=== PATIENT | female | born 1945 | race Caucasian/White ===

== ENCOUNTER 2019-01-12 10:15 | Inpatient (IN) | payer OTHER ==
[~2019-01-12] VITALS: Ht 154.9 cm; Wt 58.5 kg
[2019-01-12 10:40] VITALS: BP 142/1
[2019-01-12 10:49] LABS: HEMATOCRIT 39.4 % (37.0-47.0); HEMOGLOBIN 13.6 gm/dL (12.0-15.0); MCH 32.1 pg (26.0-34.0); MCHC 34.5 g/dL (28.0-37.0); RBC 4.23 mil/uL (4.20-5.00); RDW 12.8 % (10.5-14.5); WBC 7.5 thou/uL (4.0-11.0)
[2019-01-12 11:05] LABS: ALBUMIN 3.9 g/dL (3.4-5.0); CALCIUM 9.6 mg/dL (8.5-10.1); CREATININE 0.9 mg/dL (0.6-1.0); POTASSIUM 3.4 mmol/L (3.5-5.1); TOTAL BILIRUBIN 0.6 mg/dL (<0.1-1.0); TOTAL PROTEIN 7.2 g/dL (6.4-8.2)
--- NOTE | 2019-01-12 11:37 | NUR ---
PATIENT ADMITTED TO ROOM ACCOMPANIE BY . SHE IS ALERT ORIENTED X4. STATES SHE HAS ABDOMINAL DISCOMFORT BUT NO PAIN AT THIS TIME. RESPIRAITONS ARE NON LABORED. PLEASANT AND COOPERATIVE WITH CARE. WILL CONT WITH PLAN OF CARE.
[2019-01-12 15:29] VITALS: BP 140/55
[2019-01-12 20:25] VITALS: BP 145/65
[2019-01-13 04:30] VITALS: BP 119/51
--- NOTE | 2019-01-13 07:22 | NUR ---
ASSUMED CARE OF PT AT 1900. A&Ox4, COOPERATIVE AND PLEASANT. VS STABLE. RATED ABD PAIN MORE OF PRESSURE W/ 3/10 PAIN RATING. STATED SHE DID FEEL A LITTLE NAUSEATED 1X AFTER RETURNING FROM [place], REFUSED PRN MED. IV FLUIDS INFUSING ORDERED. NO ACUTE DISTRESS. PROGRESSING WELL TOWARDS POC GOALS.
[2019-01-13 08:17] VITALS: BP 118/54
--- NOTE | 2019-01-13 09:53 | NUR ---
care of pt assumed this am @ 0700. pt awake this am, awaiting her . pt denies soa, no n/v/d and no co pain this am. pt verbalized her desire to see the doctor this am and hopefully 1) be discharged today and 2) eat food. pt up ad candy w/ a steady, balanced and coordinated gait. ivf's infusing w/o issue to rt ac. pt given chicken broth this am which she consumed w/o issue.
[2019-01-13 12:42] VITALS: BP 108/51
[2019-01-13 14:26] VITALS: BP 108/51
== END 2019-01-13 15:38 | disposition home or self-care (01) | DRG 392 ==
LOC: 3W 10:15 → ENTRNSPT 01-13 15:30 → EDTRNSPTSTS 01-13 15:33 → 3W 01-13 15:38
PROVIDERS: ADMIT Family Medicine
DX: K52.9 Noninfective gastroenteritis and colitis, unspecified (principal); N17.9 Acute kidney failure, unspecified
CPT/HCPCS: 10779

== ENCOUNTER → 2021-04-09 | Outpatient (CLI) | payer OTHER | LOC: CAT 09:32 | PROVIDERS: ATTEND Family Medicine | DX: K42.9 Umbilical hernia without obstruction or gangrene (principal); K43.9 Ventral hernia without obstruction or gangrene; M25.78 Osteophyte, vertebrae; N20.0 Calculus of kidney; I70.0 Atherosclerosis of aorta ==

== ENCOUNTER → 2021-05-01 | Outpatient (CLI) | payer OTHER | LOC: NUC 10:12 | PROVIDERS: ATTEND Family Medicine | DX: M85.88 Other specified disorders of bone density and structure, other site (principal) ==